=== PATIENT | male | born 1970 | race Asian ===

== ENCOUNTER → 2021-07-23 12:47 | Outpatient (CLI) | payer OTHER, SELFPAY ==
[2021-07-23 14:16] LABS: COVID19 -Nasal RAPID Negative (Negative)
== END ==
PROVIDERS: Visit Provider Family Medicine Sleep Medicine
DX: Z20.822 Contact with and (suspected) exposure to COVID-19 (principal)
CPT/HCPCS: 87635; C9803

== ENCOUNTER → 2021-07-25 14:51 | Outpatient (CLI) | payer OTHER, SELFPAY ==
--- NOTE | 2021-07-25 16:00 | PM.TREADMILL ---
Cardiac Stress Test Report Referral & Results Date Patient Seen: 07/25/21 Time Patient Seen: 16:01 Requesting provider: Yosef Malave Indication: chest pain Rest ECG: Sinus bradycardia Procedure Note: Standard Papo protocol, 10:17 mins, 11 METS Fair exercise capacity, NISHA -3% Normal hemodynamic response to exercise No chest pain or anginal symptoms 2mm hortizontal ST depression in II, III, aVF, V4-V6 at peak execise No ectopy Impression: Positive exercise stress test Please note: Actual ECG tracings can be found in the PACS system.
--- NOTE | 2021-07-25 20:20 | DI.NM.S_ITS ---
DATE OF SERVICE: 07/25/2021 PROCEDURE: Treadmill exercise stress test without imaging. ORDERING PROVIDER: Dr. Yosef Malave. INDICATIONS: The patient is a 51-year-old hypertensive male with a recent ER visit for chest pain. FINDINGS: 1. The patient was able to exercise for 10 minutes, 17 seconds on a standard Papo protocol suggesting fair exercise capacity with an NISHA of -3%, achieving 12.8 METs. 2. He had a normal heart rate and blood pressure response to exercise, achieving a maximum heart rate of 154 BPM (92% of his predicted maximum). The maximum blood pressure was 174/84 with a normal response. 3. He had no chest discomfort or other anginal symptoms. 4. His resting ECG shows sinus bradycardia with J-point elevation consistent with early repolarization but otherwise normal ST segments. With exercise, he develops 2.0-3.0 mm of flat to downsloping ST-depression in the inferolateral leads that improves, but does not completely resolve until 5 minutes into recovery. There were no arrhythmias. IMPRESSION: 1. Abnormal exercise treadmill study for ischemia but with somewhat reduced specificity, with development of 2.0-3.[address]-depression with exercise. 2. Fair exercise capacity without angina. He had a normal heart rate and blood pressure response. There were no arrhythmias. 3. Consider additional evaluation with an imaging stress test for increased specificity if clinically indicated. Arnold - ANAYELI/isai/bairon doc#: [id number]/job#: [id number] dd: 07/25/2021 17:10:00 dt: 07/25/2021 20:12:00 DICTATING MD/COPIES TO: Luis Daniel Stuart MD; Yosef Malave MD COPIES MNE: FIONA
== END ==
PROVIDERS: PCP Physician Assistant Medical; Referring Provider Internal Medicine Interventional Cardiology; Visit Provider Internal Medicine Interventional Cardiology
DX: I10 Essential (primary) hypertension (principal); R07.9 Chest pain, unspecified; R94.39 Abnormal result of other cardiovascular function study
CPT/HCPCS: 93017